=== PATIENT | female | born 1955 | race Caucasian/White ===

== ENCOUNTER 2022-07-17 08:18 | Day surgery (SDC) | payer MEDICARE, OTHER ==
[~2022-07-17 08:18] MED LIST: Lactated Ringers 1,000 ML IV SCH
[2022-07-17] MEDS ORDERED: Lidocaine 2% 5 ML SDV ONE (08:25)
[2022-07-17] MEDS ORDERED: fentaNYL 100 MCG/2 ML SDV ONE (08:25)
[2022-07-17] MEDS ORDERED: Propofol 200 MG/20 ML SDV ONE (08:25)
== END 2022-07-17 11:03 | disposition home or self-care (01) ==
LOC: MW.SDS 08:18
PROVIDERS: ATTEND Surgery
DX: Z12.11 Encounter for screening for malignant neoplasm of colon (principal); D12.2 Benign neoplasm of ascending colon; K64.8 Other hemorrhoids; E55.9 Vitamin D deficiency, unspecified; R73.9 Hyperglycemia, unspecified; E78.00 Pure hypercholesterolemia, unspecified; Z98.890 Other specified postprocedural states; Z79.899 Other long term (current) drug therapy
CPT/HCPCS: 45380; J2704; J3010; J7120; 00812; 88305; J3490

== ENCOUNTER 2025-06-20 18:21 | Emergency (ER) | payer MEDICARE, OTHER | END 2025-06-20 20:05 | disposition home or self-care (01) | LOC: MW.ED 18:21 | DX: S09.90XA Unspecified injury of head, initial encounter (principal); Z79.899 Other long term (current) drug therapy; W00.0XXA Fall on same level due to ice and snow, initial encounter; Y93.89 Activity, other specified | CPT/HCPCS: 70450; 72125; 99283; A9270 ==